=== PATIENT | male | born 1970 | race Caucasian/White ===

== ENCOUNTER → 2019-08-09 | Outpatient (CLI) | payer OTHER ==
[~2019-08-09] MED LIST: ASPI-496 PO; ATOR80TA PO; BACL20TA PO; CLOP75TA52 PO; GABA300C10 PO; OXYC-307 PO
[2019-08-09 09:18] LABS: MICROSCOPIC NOT IND
[2019-08-09 09:19] LABS: BASOPHILS # (AUTO) 0.08 x10^3/uL (0-0.1); BASOPHILS % (AUTO) 1 % (0-1); EOSINOPHILS # (AUTO) 0.13 x10^3/uL (0-0.4); EOSINOPHILS % (AUTO) 2 % (1-7); LYMPHOCYTES # (AUTO) 1.67 x10^3/uL (1-3.4); LYMPHOCYTES % (AUTO) 21 % (22-44); MD NO; MEAN CORPUSCULAR HEMOGLOBIN 33.2 pg (27.5-34.5); MEAN CORPUSCULAR VOLUME 100.4 fL (81-97); MEAN PLATELET VOLUME 8.2 fL (7.4-10.4); MONOCYTES # (AUTO) 0.31 x10^3/uL (0.2-0.8); MONOCYTES % (AUTO) 4 % (2-9); NEUTROPHILS # (AUTO) 5.62 x10^3/uL (1.8-6.8); NEUTROPHILS % (AUTO) 72 % (42-75); PLATELET COUNT 241 x10^3/uL (130-400); RED BLOOD COUNT 4.73 x10^6/uL (4.38-5.82); RED CELL DISTRIBUTION WIDTH 13.4 % (9.4-14.8)
[2019-08-09 09:24] LABS: CULTURE INDICATED? NO
[2019-08-09 09:29] LABS: ALANINE AMINOTRANSFERASE 37 U/L (12-78); ALBUMIN 3.7 g/dL (3.4-5.0); ANION GAP 4 mmol/L (5-15); CALCIUM 8.7 mg/dL (8.5-10.1); CHLORIDE 109 mmol/L (98-107)
[2019-08-09 09:32] LABS: ALKALINE PHOSPHATASE 65 U/L (45-117); BILIRUBIN,TOTAL 0.4 mg/dL (0.2-1.0); CREATININE 0.96 mg/dL (0.7-1.3)
[2019-08-09 09:39] LABS: INTERNATIONAL NORMALIZED RATIO 1.04 (0.93-1.1); PROTHROMBIN TIME 10.9 Seconds (9.6-11.5)
== END | disposition home or self-care (01) ==
LOC: STAR 08:10
PROVIDERS: ATTEND Neurological Surgery
DX: Z01.818 Encounter for other preprocedural examination (principal); M54.12 Radiculopathy, cervical region; M47.892 Other spondylosis, cervical region; I25.2 Old myocardial infarction; Z87.891 Personal history of nicotine dependence
CPT/HCPCS: 36415; 71046; 80053; 81003; 85025; 85610; 85730; 93005

== ENCOUNTER 2019-08-20 05:43 | Inpatient (IN) | payer OTHER ==
[~2019-08-20] VITALS: Ht 180.3 cm; Wt 68.3 kg
[2019-08-20] MEDS ORDERED: LACTATED RINGERS 1,000 ML IV SCH (06:04)
[2019-08-20 06:06] VITALS: BP 91/63
[2019-08-20] MEDS ORDERED: THROMBIN 5,000 UNIT VIAL TP ONE (06:14)
[2019-08-20] MEDS ORDERED: BACITRACIN 50,000 UNIT ONE (06:14)
[2019-08-20] MEDS ORDERED: BUPIVACAINE/PF 0.5% ONE (06:14)
[2019-08-20] MEDS ORDERED: VANCOMYCIN 1,000 MG ONE (06:14)
[2019-08-20] MEDS ORDERED: EPINEPHRINE 1 MG/ML, 1ML ONE (06:14)
[2019-08-20] MEDS ORDERED: TIZA4TAB2 PO (06:32)
[2019-08-20] MEDS ORDERED: MIDAZOLAM 1 MG/ML, 2ML ONE (06:41)
[2019-08-20] MEDS ORDERED: FENTANYL PF 250 MCG/5ML ONE (06:42)
[2019-08-20] MEDS ORDERED: PROPOFOL 10 MG/ML, 20ML ONE (07:01)
[2019-08-20] MEDS ORDERED: SUCCINYLCHOLINE 20 MG/ML, 10ML ONE (07:01)
[2019-08-20] MEDS ORDERED: CEFAZOLIN 1,000 MG ONE (07:01)
[2019-08-20] MEDS ORDERED: ONDANSETRON 2MG/ML, 2ML ONE (07:01)
[2019-08-20] MEDS ORDERED: DEXAMETHASONE 4 MG/ML, 5ML ONE (07:01)
[2019-08-20] MEDS ORDERED: ROCURONIUM 10 MG/ML,10ML ONE (07:01)
[2019-08-20] MEDS ORDERED: ONDANSETRON 2MG/ML, 2ML IVPush PRN (07:30)
[2019-08-20] MEDS ORDERED: MEPERIDINE/PF 25MG/0.5ML IVPush PRN (07:30)
[2019-08-20] MEDS ORDERED: PROMETHAZINE 25 MG/ML, 1ML IV PRN (07:30)
[2019-08-20] MEDS ORDERED: METOCLOPRAMIDE 5 MG/ML, 2ML IV PRN (07:30)
[2019-08-20] MEDS ORDERED: OXYcodone 5 MG/5 ML ORAL.SOL UDC PO PRN (07:30)
[2019-08-20] MEDS ORDERED: LABETALOL 5MG/ML, 20ML IV PRN (07:30)
[2019-08-20] MEDS ORDERED: ALBUTEROL SULFATE 2.5 MG/3 ML NPPB PRN (07:30)
[2019-08-20] MEDS ORDERED: KETOROLAC 30 MG/1 ML IV PRN (07:30)
[2019-08-20] MEDS ORDERED: hydrALAzine 20 MG/ML, 1ML IV PRN (07:30)
[2019-08-20] MEDS ORDERED: FENTANYL PF 100 MCG/2ML ONE ×2 (08:42→08:55)
[2019-08-20] MEDS ORDERED: MEPERIDINE/PF 25MG/ML,1ML ONE (08:42)
[2019-08-20] MEDS: FENTANYL PF 100 MCG/2ML IV PRN ×4 (08:47→09:10)
[2019-08-20] MEDS ORDERED: OXYcodone 5 MG/5 ML ORAL.SOL UDC ONE (08:55)
[2019-08-20] MEDS ORDERED: METHOCARBAMOL 1,000 MG in DEXTROSE 5% 100 ML IV ONE (09:00)
[2019-08-20] MEDS ORDERED: HYDROmorphone 1 MG/ML, 1ML INJ ONE ×2 (09:14→09:35)
[2019-08-20] MEDS: HYDROmorphone 1 MG/ML, 1ML INJ IV PRN ×4 (09:15→10:16)
[2019-08-20] MEDS ORDERED: DIAZEPAM 5 MG/ML, 2ML ONE (09:46)
[2019-08-20] MEDS: DIAZEPAM 5 MG/ML, 2ML IVPush PRN ×2 (09:52→10:04)
[2019-08-20 10:56] VITALS: BP 125/72
[2019-08-20] MEDS ORDERED: MAGNESIUM HYDROXIDE 8%, 30ML UDC PO PRN ×2 (11:30)
[2019-08-20] MEDS ORDERED: OXYcodone/APAP 5/325MG TABLET PO PRN ×2 (11:30)
[2019-08-20] MEDS ORDERED: ONDANSETRON 2MG/ML, 2ML IV PRN ×2 (11:30)
[2019-08-20] MEDS ORDERED: DIPHENHYDRAMINE 25 MG CAPSULE PO PRN ×3 (11:30)
[2019-08-20] MEDS ORDERED: BISACODYL 10 MG SUPP PR PRN ×2 (11:30)
[2019-08-20] MEDS ORDERED: DIPHENHYDRAMINE 50 MG/ML, 1ML IM PRN ×3 (11:30)
[2019-08-20] MEDS ORDERED: DIPHENHYDRAMINE 50 MG/ML, 1ML IVPush PRN ×3 (11:30)
[2019-08-20] MEDS ORDERED: D5%-0.9% NACL+KCL 20MEQ 1,000 ML IV SCH (11:30)
[2019-08-20] MEDS ORDERED: HYDROmorphone 2 MG/ML, 1ML IM PRN ×2 (11:30)
[2019-08-20] MEDS ORDERED: HYDROcodone/APAP 10/325 MG TABLET PO PRN ×2 (11:30)
[2019-08-20] MEDS ORDERED: PROMETHAZINE 25 MG/ML, 1ML IM PRN ×2 (11:30)
[2019-08-20] MEDS ORDERED: CYCLOBENZAPRINE 10 MG TABLET PO PRN (11:30)
[2019-08-20] MEDS ORDERED: HYDROmorphone 2MG TABLET PO PRN (11:30)
[2019-08-20] MEDS: CYCLOBENZAPRINE 10 MG TABLET PO PRN ×2 (12:10→20:33)
[2019-08-20] MEDS: D5%-0.9% NACL+KCL 20MEQ 1,000 ML IV SCH ×2 (12:11→21:30)
[2019-08-20 12:55] VITALS: BP 132/77
[2019-08-20] MEDS ORDERED: DEXAMETHASONE 4 MG/ML, 1ML IV SCH (13:00)
[2019-08-20] MEDS: DEXAMETHASONE 4 MG/ML, 1ML IV SCH ×2 (13:34→21:11)
[2019-08-20] MEDS: OXYcodone/APAP 10/325MG TABLET PO PRN ×2 (13:35→17:55)
[2019-08-20] MEDS ORDERED: CEFAZOLIN PMX 1GM/50ML 50 ML IVPB SCH (15:00)
[2019-08-20] MEDS: CEFAZOLIN PMX 1GM/50ML 50 ML IVPB SCH (16:29)
[2019-08-20] MEDS: HYDROmorphone 2MG TABLET PO PRN ×2 (16:29→20:33)
[2019-08-20] MEDS: GABAPENTIN 300 MG CAPSULE PO SCH ×2 (16:29→21:10)
[2019-08-20 19:48] VITALS: BP 115/66
[2019-08-20] MEDS ORDERED: ATORVASTATIN 80 MG TABLET PO SCH (21:00)
[2019-08-20 23:45] VITALS: BP 102/62
[2019-08-21] MEDS: CEFAZOLIN PMX 1GM/50ML 50 ML IVPB SCH (00:38)
[2019-08-21] MEDS: HYDROmorphone 2MG TABLET PO PRN ×3 (00:39→14:02)
[2019-08-21] MEDS: DEXAMETHASONE 4 MG/ML, 1ML IV SCH ×3 (02:42→14:24)
[2019-08-21] MEDS: D5%-0.9% NACL+KCL 20MEQ 1,000 ML IV SCH (03:00)
[2019-08-21 03:37] VITALS: BP 98/59
[2019-08-21] MEDS: CYCLOBENZAPRINE 10 MG TABLET PO PRN ×2 (04:26→13:55)
[2019-08-21] MEDS: OXYcodone/APAP 10/325MG TABLET PO PRN ×3 (04:26→13:56)
[2019-08-21 07:09] VITALS: BP 100/63
[2019-08-21] MEDS: GABAPENTIN 300 MG CAPSULE PO SCH ×2 (08:47→16:00)
[2019-08-21] MEDS ORDERED: SENNA/DOCUSATE TABLET PO SCH ×2 (09:00)
[2019-08-21 12:50] VITALS: BP 114/73
[2019-08-21] MEDS ORDERED: OXYC-307 PO (17:18)
[2019-08-21] MEDS ORDERED: METH4TAB2 PO (17:19)
== END 2019-08-21 17:20 | disposition home or self-care (01) | DRG 473 ==
LOC: ORIP 05:43 → 4NE 10:48
PROVIDERS: ADMIT Neurological Surgery; ATTEND Neurological Surgery
PROC: 0RB30ZZ Excision of Cervical Vertebral Disc, Open Approach (ICD-10-PCS; 2019-08-20)
PROC: 00NW0ZZ Release Cervical Spinal Cord, Open Approach (ICD-10-PCS; 2019-08-20)
PROC: 0RG20A0 Fusion of 2 or more Cervical Vertebral Joints with Interbody Fusion Device, Anterior Approach, Anterior Column, Open Approach (ICD-10-PCS; principal; 2019-08-20 07:00)
DX: M50.122 Cervical disc disorder at C5-C6 level with radiculopathy (principal); M47.22 Other spondylosis with radiculopathy, cervical region; M48.02 Spinal stenosis, cervical region; K21.9 Gastro-esophageal reflux disease without esophagitis; I25.2 Old myocardial infarction; F17.210 Nicotine dependence, cigarettes, uncomplicated
CPT/HCPCS: 36415; 72040; S0020; 86850; 86900; C1713; G0378; J0171; J0690; J1100; J1170; J2175; J2250; J2405; J2704; J3010; J3360; J3370; C1762; J0330; J2800; J3480; J7120

== ENCOUNTER → 2021-02-11 | Outpatient (CLI) | payer OTHER ==
[~2021-02-11] MED LIST changes: +METH4TAB2 PO; -OXYC-307 PO; +OXYC-380 PO; +TIZA4TAB2 PO
== END | disposition home or self-care (01) ==
LOC: CFH 09:23
PROVIDERS: ATTEND Physician Assistant
DX: M43.23 Fusion of spine, cervicothoracic region (principal); M50.123 Cervical disc disorder at C6-C7 level with radiculopathy; M25.78 Osteophyte, vertebrae; M48.02 Spinal stenosis, cervical region
CPT/HCPCS: 72125

== ENCOUNTER 2021-02-16 07:56 | Outpatient (CLI) | payer OTHER ==
[2021-02-16] MEDS ORDERED: MIDAZOLAM 1 MG/ML, 5ML ONE (09:09)
[2021-02-16] MEDS ORDERED: FENTANYL PF 100 MCG/2ML ONE (09:09)
[2021-02-16] MEDS ORDERED: NALOXONE 1 MG/ML, 2ML ONE (09:09)
[2021-02-16] MEDS ORDERED: FLUMAZENIL 0.1 MG/1 ML, 5ML ONE (09:09)
== END 2021-02-16 23:59 | disposition home or self-care (01) ==
LOC: RAD 07:56
PROVIDERS: ATTEND Physician Assistant
DX: M50.123 Cervical disc disorder at C6-C7 level with radiculopathy (principal); M48.02 Spinal stenosis, cervical region; M48.03 Spinal stenosis, cervicothoracic region; M47.22 Other spondylosis with radiculopathy, cervical region; I25.2 Old myocardial infarction; K21.9 Gastro-esophageal reflux disease without esophagitis; F17.210 Nicotine dependence, cigarettes, uncomplicated; Z79.891 Long term (current) use of opiate analgesic; Z79.899 Other long term (current) drug therapy; Z98.1 Arthrodesis status
CPT/HCPCS: 72141; 99156; 99157; J2250; J3010; J2310